=== PATIENT | male | born 1940 | race Caucasian/White ===

== ENCOUNTER 2021-11-27 13:46 | Day surgery (SDC) | payer MEDICARE, OTHER ==
[~2021-11-27] VITALS: Ht 182.9 cm; Wt 88.6 kg
[2021-11-27] VITALS (7 sets, daily range): BP systolic 143–160; BP diastolic 78–88
[2021-11-27] MEDS ORDERED: OMEP40CA21 PO (14:25)
[2021-11-27] MEDS ORDERED: DICL1TAB61 PO (14:26)
[2021-11-27] MEDS ORDERED: CARB100C9 PO (14:27)
[2021-11-27] MEDS ORDERED: MONT10TA21 PO (14:28)
[2021-11-27] MEDS ORDERED: LOSA25TA96 PO (14:30)
[2021-11-27] MEDS ORDERED: FLO0.4C PO (14:30)
[2021-11-27] MEDS ORDERED: LEVO50TA PO (14:31)
[2021-11-27] MEDS ORDERED: SIMV-42 PO (14:31)
[2021-11-27] MEDS ORDERED: FENO145T38 PO (14:32)
[2021-11-27] MEDS ORDERED: FLEC100T35 PO (14:33)
[2021-11-27] MEDS ORDERED: METF-436 PO (14:33)
[2021-11-27] MEDS ORDERED: BACL-11 PO (14:35)
[2021-11-27] MEDS ORDERED: fentaNYL/PF 50MCG/1 ML 2ML syringe ONE ×2 (14:36)
[2021-11-27] MEDS ORDERED: MIDAZolam 1 MG/ML 5ML VIAL ONE ×2 (14:36)
[2021-11-27] MEDS ORDERED: diphenhydrAMINE 50 mg/ml inj ONE (14:36)
[2021-11-27] MEDS ORDERED: levoFLOXACIN-Levaquin 500mg/D5 100 ML IV ONE ×2 (14:37)
[2021-11-27] MEDS ORDERED: iohexol 300 MG/1 ML 50ml polymer ONE (14:37)
[2021-11-27] MEDS ORDERED: glucagon, human recombinant 1mg kit ONE (14:37)
[2021-11-27] MEDS ORDERED: LIDOcaine Viscous 15ml cup ONE (14:37)
== END 2021-11-27 16:21 | disposition home or self-care (01) ==
LOC: GI LAB 13:46
PROVIDERS: ATTEND Internal Medicine Gastroenterology
DX: R17 Unspecified jaundice (principal); R10.9 Unspecified abdominal pain; K80.50 Calculus of bile duct without cholangitis or cholecystitis without obstruction; I48.91 Unspecified atrial fibrillation; E11.9 Type 2 diabetes mellitus without complications; Z79.84 Long term (current) use of oral hypoglycemic drugs; Z79.899 Other long term (current) drug therapy; Z90.49 Acquired absence of other specified parts of digestive tract
CPT/HCPCS: 43264; 74328; 99153; C1769; G0500; J1200; J1610; J1956; J2250; J3010; J7040; Q9967; Z7512; Z7610; 99152; A4620

== ENCOUNTER 2022-06-25 05:37 | Emergency (ER) | payer MEDICARE, OTHER ==
[~2022-06-25] VITALS: Ht 182.9 cm; Wt 95.5 kg
[~2022-06-25 05:37] MED LIST: BACL-11 PO; CARB100C9 PO; DICL1TAB61 PO; FENO145T38 PO; FLEC100T35 PO; FLO0.4C PO; LEVO50TA PO; LOSA25TA96 PO; METF-436 PO; MONT10TA21 PO; OMEP40CA21 PO; SIMV-42 PO
[2022-06-25 08:13] LABS: BASOPHILS % (AUTO) 0.2 % (0-1); EOSINOPHILS # (AUTO) 0.1 X10'3 (0-0.9); EOSINOPHILS % (AUTO) 0.5 % (0-6); HEMATOCRIT 36.1 % (42.0-52.0); HEMOGLOBIN 12.5 g/dl (14.0-17.9); LYMPHOCYTES # (AUTO) 0.7 X10'3 (1.1-4.8); LYMPHOCYTES % (AUTO) 4.4 % (21-51); MEAN CORPUSCULAR HEMOGLOBIN 29.5 PG (27.0-31.0); MEAN CORPUSCULAR HGB CONC 34.6 g/dL (33.0-36.5); MEAN CORPUSCULAR VOLUME 85.2 FL (78-98); MEAN PLATELET VOLUME 7.8 FL (7.4-10.4); MONOCYTES # (AUTO) 1.8 X10'3 (0-0.9); NEUTROPHILS # (AUTO) 12.4 X10'3 (1.8-7.7); NEUTROPHILS % (AUTO) 82.9 % (42-75); PLATELET COUNT 326 X10'3 (140-440); RED BLOOD COUNT 4.24 X10'6 (4.70-6.10); RED CELL DISTRIBUTION WIDTH 13.5 % (11.5-14.5)
[2022-06-25 08:32] LABS: ALANINE AMINOTRANSFERASE 26 U/L (12-78); ALBUMIN 3.8 G/DL (3.4-5.0); ALBUMIN/GLOBULIN RATIO 0.7 (1.1-1.5); ALKALINE PHOSPHATASE 85 IU/L (46-116); ANION GAP 12 (8-16); ASPARTATE AMINO TRANSFERASE 24 U/L (10-37); BILIRUBIN,TOTAL 0.5 MG/DL (0.1-1.0); BLOOD UREA NITROGEN 27 MG/DL (7-18); CALCIUM 9.8 MG/DL (8.5-10.1); CHLORIDE 98 MMOL/L (99-107); GLUCOSE 264 MG/DL (70-104); LIPASE 59 U/L (73-393); SODIUM 135 MMOL/L (135-145); eGFR 45 ML/MIN
--- NOTE | 2022-06-25 08:40 | NUR ---
Bladder scanner: 540, 540, and 438ml residual after void.
[2022-06-25 08:42] LABS: CLARITY,URINE CLOUDY (Clear); COLOR,URINE YELLOW (Yellow); GLUCOSE, URINE >=1000 mg/dl (Neg); KETONES,URINE NEGATIVE (Neg); LEUKOCYTE ESTERASE ,URINE MODERATE (Neg); NITRITES, URINE POSITIVE (Neg); OCCULT BLOOD,URINE MODERATE (Neg); PROTEIN,URINE 30 mg/dl (Neg); UROBILINOGEN,URINE 0.2 E.U/dL (0.2-1.0)
[2022-06-25 08:43] LABS: UA COLLECTION TYPE NON-SPECIFIED
[2022-06-25 08:59] LABS: RBC,URINE TNTC /HPF (0-2); WBC,URINE TNTC /HPF (0-4)
[2022-06-25 09:00] LABS: BACTERIA,URINE 1+ /HPF (Neg)
[2022-06-25 09:02] LABS: SQUAMOUS EPITHELIAL CELL,UR NONE SEEN /LPF (FEW)
[2022-06-25] MEDS ORDERED: ciprofloxacin 250mg tablet PO ONE (09:05)
[2022-06-25] MEDS ORDERED: LIDOcaine 2% 10ml TOPICAL JELLY (Urojet) TP ONE (09:05)
[2022-06-25] MEDS ORDERED: CefTRIAXone 1000mg IM Kit (w/lidocaine diluent) IM ONE (09:05)
[2022-06-25] MEDS ORDERED: CIPR-202 PO (09:22)
--- NOTE | 2022-06-25 09:51 | NUR ---
Unable to pass coude catheter. Two attempts, 14Fr. and 18Fr.
[2022-06-25 12:00] VITALS: BP 145/73
--- NOTE | 2022-06-25 12:00 | NUR ---
Dr. Lebron is at the bedside.
--- NOTE | 2022-06-25 12:50 | NUR ---
Attached a leg bag to new alan catheter that was placed by
--- NOTE | 2022-06-25 13:00 | NUR ---
Pt and given and understands d/c instructions. Ambulatory with a steady gait.
== END 2022-06-25 13:00 | disposition home or self-care (01) ==
LOC: ER 05:38
DX: N39.0 Urinary tract infection, site not specified (principal); R33.9 Retention of urine, unspecified; Z79.899 Other long term (current) drug therapy; Z79.2 Long term (current) use of antibiotics; Z79.84 Long term (current) use of oral hypoglycemic drugs
CPT/HCPCS: 36415; 51702; 80053; 81001; 83690; 85025; 87077; 87088; 87186; 96372; 99285; C1758; J0696; A4314; A4340; A4358; A5200